=== PATIENT | male | born 1955 | race Hispanic/Latino ===

== ENCOUNTER → 2021-09-13 | Day surgery (SDC) | payer OTHER ==
[~2021-09-13] MED LIST: ALLOPURINOL300 MG PO; ATENOLOL50 MG PO; BALANCED SALT SOLN (OPTH) 15 ML BTL IO ONE; CYCLOPENTOLATE HCL 1% OPTH SOLN 2ML BTL ONE; EPINEPHRINE HCL 1:1000 1ML 1 MG/ML AMP ONE; FENTANYL CITRATE/PF 100MCG/2 ML INJ ONE; LIDOCAINE HCL-PF 4% 40 MG/1 ML 5ML AMP ONE; LOSARTAN POTAS100 MG PO; METFORMIN HCL500 MG PO; MIDAZOLAM HCL 2 MG/2 ML VIAL ONE; NIFEDIPINE ER30 M1 PO; PHENYLEPHRINE HCL 2 ML DROPS ONE; POVIDONE IODINE 5% (OPTH) 30 ML BTL ONE; PROTONIX20 MG PO; SERTRALINE HCL50 MG PO
[2021-09-13 10:30] VITALS: BP 131/72
== END | disposition home or self-care (01) ==
LOC: OR 06:38
PROVIDERS: ATTEND Ophthalmology
DX: H25.811 Combined forms of age-related cataract, right eye (principal); Z96.1 Presence of intraocular lens; R06.83 Snoring; I10 Essential (primary) hypertension; E11.9 Type 2 diabetes mellitus without complications; K21.9 Gastro-esophageal reflux disease without esophagitis; F41.9 Anxiety disorder, unspecified; F32.A Depression, unspecified; Z01.810 Encounter for preprocedural cardiovascular examination; Z01.812 Encounter for preprocedural laboratory examination; Z20.822 Contact with and (suspected) exposure to COVID-19; Z79.84 Long term (current) use of oral hypoglycemic drugs; Z79.899 Other long term (current) drug therapy
CPT/HCPCS: 36415; 82948; 93005; J0171; J2250; J3010; U0002

== ENCOUNTER → 2022-01-10 | Day surgery (SDC) | payer OTHER ==
[2022-01-06 13:50] LABS: BASOPHILS % 0.2 % (0.0-1.0); EOSINOPHILS # (AUTO) 0.3 (0.0-0.4); EOSINOPHILS % 3.7 % (0.0-6.0); HEMATOCRIT 36.6 % (38.2-49.6); HEMOGLOBIN 11.9 g/dL (14.0-18.0); LYMPHOCYTES # (AUTO) 1.8 (1.0-3.2); LYMPHOCYTES % 21.8 % (18.0-39.1); MEAN CORPUSCULAR HEMOGLOBIN 30.1 pg (28-32); MEAN CORPUSCULAR HGB CONC 32.5 g/dL (31-35); MEAN CORPUSCULAR VOLUME 92.4 fL (81-99); MONOCYTES # (AUTO) 0.9 (0.2-0.8); MONOCYTES % 10.5 % (4.4-11.3); NEUTROPHILS # (AUTO) 5.2 (2.1-6.9); NEUTROPHILS % 63.6 % (38.7-80.0); PLATELET COUNT 203 x10e3/uL (140-360); RED BLOOD COUNT 3.96 x10e6/uL (4.3-5.7); RED CELL DISTRIBUTION WIDTH 13.9 % (11.7-14.4)
[2022-01-06 14:04] LABS: ANION GAP 11.1 mmol/L (8-16); BLOOD UREA NITROGEN 22 mg/dL (7-26); BUN/CREATININE RATIO 12 (6-25); CALCIUM 9.6 mg/dL (8.4-10.2); CARBON DIOXIDE 31 mmol/L (22-29); CHLORIDE 103 mmol/L (98-107); CREATININE, SERUM 1.77 mg/dL (0.72-1.25); GLUCOSE 103 mg/dL (74-118); POTASSIUM 4.1 mmol/L (3.5-5.1); SODIUM 141 mmol/L (136-145)
[~2022-01-10] MED LIST changes: +MOXIFLOXACIN HCL(OPTH) 3 ML BTL ONE; +PILOCARPINE HCL(OPTH) 15 ML LIQD ONE; +TROPICAMIDE 1% OPTH SOLN 15 ML BTL ONE
[2022-01-10 08:15] VITALS: BP 117/63
== END | disposition home or self-care (01) ==
LOC: OR 08:49
PROVIDERS: ATTEND Ophthalmology
DX: H25.812 Combined forms of age-related cataract, left eye (principal); Z96.1 Presence of intraocular lens; E11.9 Type 2 diabetes mellitus without complications; I10 Essential (primary) hypertension; E78.5 Hyperlipidemia, unspecified; K21.9 Gastro-esophageal reflux disease without esophagitis; M10.9 Gout, unspecified; Z01.810 Encounter for preprocedural cardiovascular examination; Z01.812 Encounter for preprocedural laboratory examination; Z20.822 Contact with and (suspected) exposure to COVID-19; Z79.84 Long term (current) use of oral hypoglycemic drugs; Z79.899 Other long term (current) drug therapy
CPT/HCPCS: 0223U; 36415; 80048; 82948; 85025; 93005; J0171; J2250; J3010; V2632